=== PATIENT | male | born 1980 | race Hispanic/Latino ===

== ENCOUNTER 2017-02-10 08:35 | Emergency (ER) | payer OTHER ==
[~2017-02-10] VITALS: Ht 170.2 cm; Wt 79.5 kg
[2017-02-10] MEDS ORDERED: VENTAER IN (08:49)
[2017-02-10] MEDS ORDERED: NORT10SO PO (08:49)
[2017-02-10] MEDS ORDERED: CYCL10TA PO (08:49)
[2017-02-10] MEDS ORDERED: SING10TA32 PO (08:49)
--- NOTE | 2017-02-10 09:26 | ECGEPIP ---
Stationary ECG Study 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
[2017-02-10 09:34] VITALS: BP 127/80
== END 2017-02-10 09:48 | disposition home or self-care (01) ==
LOC: M ED 08:35
DX: R00.0 Tachycardia, unspecified (principal); J45.909 Unspecified asthma, uncomplicated; Z79.899 Other long term (current) drug therapy

== ENCOUNTER 2018-05-03 09:04 | Emergency (ER) | payer OTHER ==
[~2018-05-03] VITALS: Ht 170.2 cm; Wt 81.8 kg
[~2018-05-03 09:04] MED LIST: CYCL10TA PO; NORT10SO PO; SING10TA32 PO; VENTAER IN
[2018-05-03] MEDS ORDERED: OXAZEPAM 15 MG CAP PO ONE (10:00)
[2018-05-03 11:03] LABS: HEMATOCRIT 39.7 % (42.0-52.0); HEMOGLOBIN 14.1 g/dl (13.5-17.5); MEAN CORPUSCULAR HEMOGLOBIN 33.3 pg (27.0-33.0); MEAN CORPUSCULAR HGB CONC 35.5 g/dl (32.0-36.5); MEAN CORPUSCULAR VOLUME 93.6 fl (80.0-96.0); PLATELET COUNT, AUTOMATED 261 10^3/uL (150-450); RED BLOOD COUNT 4.24 10^6/uL (4.30-6.10); WHITE BLOOD COUNT 8.3 10^3/uL (4.0-10.0)
[2018-05-03 11:17] LABS: AMPHETAMINES LEVEL URINE NEGATIVE (NEGATIVE); BARBITURATES URINE NEGATIVE (NEGATIVE); BENZODIAZEPINES URINE NEGATIVE (NEGATIVE); CANNABINOIDS URINE NEGATIVE (NEGATIVE); COCAINE METABOLITE URINE NEGATIVE (NEGATIVE); METHADONE URINE NEGATIVE (NEGATIVE); OPIATES URINE NEGATIVE (NEGATIVE); PHENCYCLIDINE URINE NEGATIVE (NEGATIVE)
[2018-05-03 11:44] LABS: ACETAMINOPHEN LEVEL < 2.0 UG/ML (10.0-30.0); ALBUMIN 4.1 GM/DL (3.2-5.2); ALT/SGPT 290 U/L (12-78); BILIRUBIN,DIRECT 0.2 MG/DL (0.0-0.2); BILIRUBIN,TOTAL 0.5 MG/DL (0.2-1.0); BLOOD UREA NITROGEN 7 MG/DL (7-18); CARBON DIOXIDE LEVEL 28 MEQ/L (21-32); CHLORIDE LEVEL 98 MEQ/L (98-107); CREATININE FOR GFR 0.82 MG/DL (0.70-1.30); ETHYL ALCOHOL (ETHANOL) 0.066 % (0.000-0.010); GLOMERULAR FILTRATION RATE > 60.0 (>60); GLUCOSE, FASTING 106 MG/DL (70-100); POTASSIUM SERUM 3.3 MEQ/L (3.5-5.1); SALICYLATE LEVEL < 1.7 MG/DL (5.0-30.0); SODIUM LEVEL 136 MEQ/L (136-145); THYROID STIMULATING HORMONE 0.302 uIU/ML (0.358-3.740); TOTAL PROTEIN 7.4 GM/DL (6.4-8.2)
[2018-05-03] MEDS ORDERED: OXAZ30CA2 PO (12:35)
[2018-05-03 12:47] VITALS: BP 151/91
== END 2018-05-03 12:49 | disposition home or self-care (01) ==
LOC: M ED 09:04
DX: F10.10 Alcohol abuse, uncomplicated (principal); G25.1 Drug-induced tremor; Z79.899 Other long term (current) drug therapy
CPT/HCPCS: 36415; 80048; 80076; 80307; 84443; 85027; 99283; G0480

== ENCOUNTER → 2018-07-20 | Outpatient (CLI) | payer OTHER ==
[~2018-07-20] MED LIST changes: +OXAZ30CA2 PO
--- NOTE | 2018-07-20 12:38 | PFTRPT ---
Site: [facility], [address] [place] [address], [id number] ID: [id number] Name: ARIE ROLAND Visit Date: 07/20/2018 Second ID: [id number] Referring Doctor: Manuel Anguiano Reviewing Doctor: Romero Arteaga MD Hiv Prevention Specialist: Brittni CHOW RRT Age: 38 : 1980 Sex: Male Race: Height: 67.00 Inches Weight: 172.00 Lbs BSA: 1.90 Order IDs: [id number] Requested Test(s): <RESP-PFT.DLCO> Diagnosis: ASTHMA test meet the ATS standards for acceptability and repeatability. Review Status: Not Reviewed Pre-Bronch Post-Bronch Pred Actual %Pred Actual %Chng SPIROMETRY FVC (L) 4.79 4.86 101 FEV1 (L) 3.88 3.89 100 FEV1/FVC (%) 82 80 97 FEF 25% (L/sec) 7.67 8.66 112 FEF 50% (L/sec) 5.29 4.72 89 FEF 75% (L/sec) 1.86 1.40 75 FEF 25-75% (L/sec) 4.02 3.65 90 FEF Max (L/sec) 9.61 10.06 104 FIVC (L) 4.63 FIF 50% (L/sec) 5.28 5.35 101 FIF Max (L/sec) 5.59 MVV (L/min) 157 158 100 Expiratory Time (sec) 7.68 Back Extrap Vol (L) 0.10 Time To FEFmax (sec) 0.068 LUNG VOLUMES SVC (L) 4.69 4.81 102 IC (L) 3.23 3.50 108 ERV (L) 1.46 1.31 89 TGV (L) 3.09 2.75 89 RV (Pleth) (L) 1.63 1.44 88 TLC (Pleth) (L) 6.32 6.25 98 RV/TLC (Pleth) (%) 26 23 88 DIFFUSION DLCOunc (ml/min/mmHg) 32.15 26.80 83 DL/VA (ml/min/mmHg/L) 5.09 4.20 82 VA (L) 6.32 6.37 100 BHT (sec) 10.29 IVC (L) 4.71 TLC (SB) (L) 6.52 AIRWAYS RESISTANCE Raw (cmH2O/L/s) 1.45 1.11 76 Gaw (L/s/cmH2O) 1.03 0.92 89 sRaw (cmH2O*s) 4.76 3.65 76 sGaw (1/cmH2O*s) 0.20 0.28 140
== END ==
LOC: M CARPUL 09:50
PROVIDERS: ATTEND Physician Assistant
DX: J45.20 Mild intermittent asthma, uncomplicated (principal)

== ENCOUNTER → 2018-11-15 | Outpatient (CLI) | payer OTHER ==
--- NOTE | 2018-11-15 10:48 | REP ---
Clinical: Asthma . Comparison: None . Technique: PA and lateral. Findings: The mediastinum and cardiac silhouette are normal. The lung arguelles are clear and without acute consolidation, effusion, or pneumothorax. The skeletal structures are intact and normal. Impression: 1. No acute cardiopulmonary process. Electronically Signed by Anupam Linton MD 11/15/2018 10:40 A
== END ==
LOC: M SMT 10:16
PROVIDERS: ATTEND Physician Assistant
DX: J45.20 Mild intermittent asthma, uncomplicated (principal)

== ENCOUNTER 2019-06-25 08:01 | Emergency (ER) | payer OTHER ==
[~2019-06-25] VITALS: Ht 170.2 cm; Wt 90.9 kg
[~2019-06-25 08:01] MED LIST changes: +CYCL-707 PO; -CYCL10TA PO
[2019-06-25 09:01] LABS: HEMATOCRIT 43.1 % (42.0-52.0); HEMOGLOBIN 15.6 g/dl (13.5-17.5); MEAN CORPUSCULAR HEMOGLOBIN 33.5 pg (27.0-33.0); MEAN CORPUSCULAR HGB CONC 36.2 g/dl (32.0-36.5); MEAN CORPUSCULAR VOLUME 92.7 fl (80.0-96.0); PLATELET COUNT, AUTOMATED 267 10^3/uL (150-450); RED BLOOD COUNT 4.65 10^6/uL (4.30-6.10); WHITE BLOOD COUNT 6.3 10^3/uL (4.0-10.0)
[2019-06-25] MEDS ORDERED: LORazepam 2 MG/ML VIAL (J2060) IV STA (09:04)
[2019-06-25] MEDS ORDERED: MULTIVITAMIN -ADULT INJECTION 10 ML, THIAMINE INJection 100 MG, FOLIC ACID 1 MG in NS 1... IV ONE (09:15)
[2019-06-25 09:23] LABS: MAGNESIUM LEVEL 2.1 MG/DL (1.8-2.4); PHOSPHORUS LEVEL 2.8 MG/DL (2.5-4.9)
[2019-06-25] MEDS ORDERED: ONDANSETRON 4MG/2ML VIAL (J2405) As Ordered ONE (09:28)
[2019-06-25] MEDS ORDERED: ONDANSETRON 4MG/2ML VIAL (J2405) IV ONE (09:30)
[2019-06-25 09:31] LABS: ACETAMINOPHEN LEVEL < 2.0 UG/ML (10.0-30.0); ALBUMIN 4.3 GM/DL (3.2-5.2); ALT/SGPT 201 U/L (12-78); BILIRUBIN,DIRECT 0.1 MG/DL (0.0-0.2); BILIRUBIN,TOTAL 0.6 MG/DL (0.2-1.0); BLOOD UREA NITROGEN 10 MG/DL (7-18); CALCIUM LEVEL 8.5 MG/DL (8.5-10.1); CARBON DIOXIDE LEVEL 27 MEQ/L (21-32); CHLORIDE LEVEL 103 MEQ/L (98-107); CREATININE FOR GFR 0.94 MG/DL (0.70-1.30); ETHYL ALCOHOL (ETHANOL) 0.122 % (0.000-0.010); GLOMERULAR FILTRATION RATE > 60.0 (>60); GLUCOSE, FASTING 129 MG/DL (70-100); POTASSIUM SERUM 3.3 MEQ/L (3.5-5.1); SALICYLATE LEVEL < 1.7 MG/DL (5.0-30.0); SODIUM LEVEL 142 MEQ/L (136-145); THYROID STIMULATING HORMONE 0.549 uIU/ML (0.358-3.740); TOTAL PROTEIN 7.7 GM/DL (6.4-8.2)
[2019-06-25 09:34] LABS: AMPHETAMINES LEVEL URINE NEGATIVE (NEGATIVE); BARBITURATES URINE NEGATIVE (NEGATIVE); BENZODIAZEPINES URINE NEGATIVE (NEGATIVE); CANNABINOIDS URINE NEGATIVE (NEGATIVE); COCAINE METABOLITE URINE NEGATIVE (NEGATIVE); METHADONE URINE NEGATIVE (NEGATIVE); OPIATES URINE NEGATIVE (NEGATIVE); PHENCYCLIDINE URINE NEGATIVE (NEGATIVE)
[2019-06-25 10:00] LABS: VENOUS BASE EXCESS 2.4 (-2.0-2.0); VENOUS HCO3 27.7 MEQ/L (23.0-27.0); VENOUS O2 SATURATION 94.2 % (60.0-80.0); VENOUS PARTIAL PRESSURE O2 71.8 mmHg (30.0-50.0); VENOUS PH 7.407 UNITS (7.330-7.430); VENOUS STANDARD HCO3 26.5 MEQ/L; VENOUS TOTAL CO2 29.1 MEQ/L (24.0-28.0)
[2019-06-25 10:57] LABS: ACETONE/KETONE 1.68 MG/DL (<2.81)
[2019-06-25 11:15] VITALS: BP 124/70
[2019-06-25] MEDS ORDERED: OXAZEPAM 15 MG CAP PO ONE (11:15)
--- NOTE | 2019-06-25 11:42 | ECGEPIP ---
[facility] - ED Test Date: 2019-06-25 Pat Name: ARIE ROLAND Department: Room: - Gender: Male Inspector Electromechanical: nai : 1980 Requested By: Elizabeth Ch Order Number: [id number] Reading MD: Elizabeth Ch Measurements Intervals [place] Rate: 83 P: 28 MI: 144 QRS: 29 QRSD: 111 T: 0 QT: 388 QTc: 456 Interpretive Statements SINUS RHYTHM MODERATE INTRAVENTRICULAR CONDUCTION DELAY NONSPECIFIC ST T [facility]ES CW 02/10/[address] T [facility] Electronically Signed on 06-25-2019 11:41:30 EDT by Elizabeth Ch
== END 2019-06-25 11:40 | disposition home or self-care (01) ==
LOC: M ED 08:01
DX: F10.239 Alcohol dependence with withdrawal, unspecified (principal); M25.512 Pain in left shoulder; I10 Essential (primary) hypertension
CPT/HCPCS: 80048; 80076; 80307; 81001; 82010; 82803; 83735; 83930; 84100; 84443; 85027; 93005; 93041; 94760; 96365; 96366; 96375; 99285; G0480; J2060; J2405; J3411

== ENCOUNTER → 2021-01-29 | Outpatient (REF) ==
--- NOTE | 2021-01-29 13:39 | REP ---
INDICATION: SOB AND PAIN COMPARISON: 11/15/2018 TECHNIQUE: PA and lateral. FINDINGS: The mediastinum and cardiac silhouette are normal. The lung arguelles are clear and without acute consolidation, effusion, or pneumothorax. The skeletal structures are intact and normal. IMPRESSION: No acute cardiopulmonary process. <Electronically signed by Anupam Linton > 01/29/21 [id number]
--- NOTE | 2021-01-29 13:42 | REP ---
INDICATION: SOB AND PAIN COMPARISON: None. TECHNIQUE: AP, lateral, bilateral oblique views right foot. FINDINGS: The osseous structures and joint spaces are intact and essentially age-appropriate. There is no evidence for acute fracture or dislocation. Surrounding soft tissues are unremarkable. Minimal periarticular sclerosis and joint space narrowing involving the 1st metatarsophalangeal joint and interphalangeal joints suggested. IMPRESSION: Age-appropriate right foot radiographs. <Electronically signed by Anupam Linton > 01/29/21 [id number]
== END ==
LOC: M PLAIMG 13:11
PROVIDERS: ATTEND Internal Medicine
DX: R06.02 Shortness of breath (principal); M79.671 Pain in right foot

== ENCOUNTER 2022-08-04 16:25 | Inpatient (IN) | payer OTHER ==
[~2022-08-04] VITALS: Ht 170.2 cm; Wt 70.5 kg
[2022-08-04] MEDS: MULTIVITAMINS/MINERALS THERAP 1 TAB PO SCH (09:00)
[~2022-08-04 16:25] MED LIST changes: +MONT-5 PO; -SING10TA32 PO
[2022-08-04] MEDS: LORazepam 2 MG TAB PO PRN ×2 (16:52→18:10)
[2022-08-04] MEDS ORDERED: LORazepam 2 MG/ML 1ML VIAL IV STA (17:02)
[2022-08-04] MEDS ORDERED: THIAMINE 200MG 2ML VIAL IM ONE (17:05)
[2022-08-04] MEDS ORDERED: NS 1,000 ML IV SCH (17:15)
[2022-08-04 17:21] LABS: BASO # 0.1 10^3/uL (0.0-0.2); EOS % 0.1 % (0.0-3.0); HEMATOCRIT 39.7 % (42.0-52.0); HEMOGLOBIN 13.6 g/dl (13.5-17.5); LYMPH # 0.8 10^3/uL (1.5-5.0); LYMPH % 11.4 % (24.0-44.0); MEAN CORPUSCULAR HEMOGLOBIN 35.1 pg (27.0-33.0); MEAN CORPUSCULAR HGB CONC 34.3 g/dl (32.0-36.5); MEAN CORPUSCULAR VOLUME 102.6 fl (80.0-96.0); MONO # 0.4 10^3/uL (0.0-0.8); MONO % 5.8 % (2.0-8.0); NEUTROPHILS # 5.8 10^3/uL (1.5-8.5); PLATELET COUNT, AUTOMATED 229 10^3/uL (150-450); RED BLOOD COUNT 3.87 10^6/uL (4.30-6.10); WHITE BLOOD COUNT 7.1 10^3/uL (4.0-10.0)
[2022-08-04 17:36] LABS: LIPASE 64 U/L (12-53); OSMOLALITY SERUM 304 MOSM/KG (275-295)
[2022-08-04 17:37] LABS: ETHYL ALCOHOL (ETHANOL) 0.013 % (0.000-0.010)
[2022-08-04 17:39] LABS: ALBUMIN 4.5 G/DL (3.2-5.2); ALKALINE PHOSPHATASE 121 U/L (46-116); ALT/SGPT 192 U/L (7.0-40); AST/SGOT 262 U/L (<34); BILIRUBIN,DIRECT 1.4 MG/DL (<0.4); BILIRUBIN,TOTAL 2.3 MG/DL (0.3-1.2); BLOOD UREA NITROGEN 10 MG/DL (9-23); CALCIUM LEVEL 10.2 MG/DL (8.5-10.1); CARBON DIOXIDE LEVEL 20 MMOL/L (20-31); CHLORIDE LEVEL 97 MMOL/L (98-107); CREATININE FOR GFR 0.68 MG/DL (0.70-1.30); GLOMERULAR FILTRATION RATE > 60.0 (>60); GLUCOSE, FASTING 200 MG/DL (60-100); MAGNESIUM LEVEL 1.5 MG/DL (1.8-2.4); POTASSIUM SERUM 3.5 MMOL/L (3.5-5.1); SODIUM LEVEL 136 MMOL/L (136-145); TOTAL PROTEIN 8.4 G/DL (5.7-8.2)
[2022-08-04 17:42] LABS: THYROID STIMULATING HORMONE 1.689 uIU/ML (0.55-4.78)
[2022-08-04] MEDS ORDERED: MAG SULF 1GM/100ML (MAG RUN) 1 GM in IV 1 EA IV ONE (18:00)
[2022-08-04] MEDS ORDERED: CETI5TAB2 PO (18:43)
[2022-08-04] MEDS ORDERED: CETI-24 PO (18:44)
[2022-08-04] MEDS ORDERED: HOME MED LIST COMPLETE! XX SCH (18:45)
[2022-08-04] MEDS ORDERED: diazePAM 10MG/2ML SYRINGE IV ONE (18:45)
[2022-08-04] MEDS ORDERED: LORazepam 2 MG TAB XX PRN (18:45)
[2022-08-04] MEDS: OXAZEPAM 15MG CAP PO SCH (19:14)
[2022-08-04] MEDS: THIAMINE 100 MG TAB PO SCH (19:56)
[2022-08-04] MEDS: ENOXAPARIN 40MG/0.4ML SYRINGE (J1650 PER 10MG) SC SCH (19:56)
[2022-08-04] MEDS: FOLIC ACID 1MG TAB PO SCH (19:56)
[2022-08-04] MEDS: LR 1,000 ML IV SCH (19:57)
[2022-08-04] MEDS: LORazepam 2 MG/ML 1ML VIAL IV PRN ×2 (19:59→21:55)
[2022-08-04 20:10] LABS: RSV AMPLIFICATION NEGATIVE (NEGATIVE)
[2022-08-04] MEDS ORDERED: THIAMINE 100 MG TAB PO SCH (21:00)
[2022-08-04 21:22] VITALS: BP 133/84
[2022-08-04 23:50] VITALS: BP 115/73
[2022-08-05] VITALS (21 sets, daily range): BP systolic 133–148; BP diastolic 75–89; O2SAT 92–98
[2022-08-05] MEDS: OXAZEPAM 15MG CAP PO SCH ×4 (00:17→17:30)
[2022-08-05] MEDS: LR 1,000 ML IV SCH (02:43)
[2022-08-05 05:55] LABS: HEMATOCRIT 35.8 % (42.0-52.0); HEMOGLOBIN 12.1 g/dl (13.5-17.5); MEAN CORPUSCULAR HEMOGLOBIN 34.8 pg (27.0-33.0); MEAN CORPUSCULAR HGB CONC 33.8 g/dl (32.0-36.5); MEAN CORPUSCULAR VOLUME 102.9 fl (80.0-96.0); PLATELET COUNT, AUTOMATED 168 10^3/uL (150-450); RED BLOOD COUNT 3.48 10^6/uL (4.30-6.10); WHITE BLOOD COUNT 5.4 10^3/uL (4.0-10.0)
[2022-08-05 06:24] LABS: ALBUMIN 3.8 G/DL (3.2-5.2); ALKALINE PHOSPHATASE 96 U/L (46-116); ALT/SGPT 154 U/L (7.0-40); AST/SGOT 200 U/L (<34); BILIRUBIN,TOTAL 2.3 MG/DL (0.3-1.2); BLOOD UREA NITROGEN 11 MG/DL (9-23); CALCIUM LEVEL 9.3 MG/DL (8.5-10.1); CARBON DIOXIDE LEVEL 33 MMOL/L (20-31); CHLORIDE LEVEL 100 MMOL/L (98-107); GLOMERULAR FILTRATION RATE > 60.0 (>60); GLUCOSE, FASTING 94 MG/DL (60-100); MAGNESIUM LEVEL 1.9 MG/DL (1.8-2.4); POTASSIUM SERUM 3.3 MMOL/L (3.5-5.1); SODIUM LEVEL 135 MMOL/L (136-145); TOTAL PROTEIN 7.1 G/DL (5.7-8.2)
[2022-08-05] MEDS: FOLIC ACID 1MG TAB PO SCH (08:38)
[2022-08-05] MEDS: THIAMINE 100 MG TAB PO SCH ×2 (08:38→21:42)
[2022-08-05] MEDS: MULTIVITAMINS/MINERALS THERAP 1 TAB PO SCH (08:38)
[2022-08-05] MEDS ORDERED: POTASSIUM CHLORIDE 10MEQ SR TABLET PO ONE (08:45)
[2022-08-05] MEDS: LORazepam 2 MG/ML 1ML VIAL IV PRN ×3 (08:48→21:42)
[2022-08-05] MEDS: MAG SULF 1GM/100ML (MAG RUN) 1 GM in IV 1 EA IV SCH ×2 (08:52→10:20)
[2022-08-05] MEDS ORDERED: MULTIVITAMINS/MINERALS THERAP 1 TAB PO SCH (09:00)
[2022-08-05] MEDS ORDERED: FOLIC ACID 1MG TAB PO SCH (09:00)
[2022-08-05 09:06] LABS: PHOSPHORUS LEVEL 2.2 MG/DL (2.5-4.9)
[2022-08-05 09:09] LABS: VITAMIN B12 LEVEL 716 PG/ML (211-911)
[2022-08-05] MEDS ORDERED: LABETALOL 100MG/20ML VIAL IV PRN (09:50)
[2022-08-05 10:27] LABS: INR 1.11; PARTIAL THROMBOPLASTIN TIME 29.4 SECONDS (24.8-34.2); PROTHROMBIN TIME 14.5 SECONDS (12.5-14.5)
[2022-08-05 10:59] LABS: HEPATITIS B SURFACE ANTIGEN NEGATIVE (NEGATIVE)
[2022-08-05 11:19] LABS: HEPATITIS B CORE ANTIBODY IGM NEGATIVE (NEGATIVE)
[2022-08-05] MEDS ORDERED: ONDANSETRON 4MG 2ML VIAL IV PRN (17:10)
[2022-08-05] MEDS: ENOXAPARIN 40MG/0.4ML SYRINGE (J1650 PER 10MG) SC SCH (21:42)
[2022-08-06] VITALS: BP 126/86; O2SAT 97
[2022-08-06] MEDS: OXAZEPAM 15MG CAP PO SCH ×2 (00:09→05:10)
[2022-08-06 01:00] VITALS: O2SAT 96
[2022-08-06 02:00] VITALS: O2SAT 93
[2022-08-06 03:00] VITALS: O2SAT 92
[2022-08-06 04:00] VITALS: BP 134/83; O2SAT 93
[2022-08-06 06:18] LABS: BASO # 0.1 10^3/uL (0.0-0.2); BASO % 0.8 % (0.0-1.0); EOS # 0.2 10^3/uL (0.0-0.5); EOS % 2.6 % (0.0-3.0); HEMATOCRIT 38.4 % (42.0-52.0); LYMPH # 2.1 10^3/uL (1.5-5.0); LYMPH % 33.7 % (24.0-44.0); MEAN CORPUSCULAR HEMOGLOBIN 34.9 pg (27.0-33.0); MEAN CORPUSCULAR HGB CONC 33.9 g/dl (32.0-36.5); MEAN CORPUSCULAR VOLUME 102.9 fl (80.0-96.0); MONO # 0.5 10^3/uL (0.0-0.8); MONO % 8.2 % (2.0-8.0); NEUTROPHILS # 3.4 10^3/uL (1.5-8.5); NEUTROPHILS % 54.4 % (36.0-66.0); PLATELET COUNT, AUTOMATED 204 10^3/uL (150-450); RED BLOOD COUNT 3.73 10^6/uL (4.30-6.10); WHITE BLOOD COUNT 6.2 10^3/uL (4.0-10.0)
[2022-08-06 06:34] LABS: ALBUMIN 3.9 G/DL (3.2-5.2); ALKALINE PHOSPHATASE 102 U/L (46-116); ALT/SGPT 202 U/L (7.0-40); AST/SGOT 284 U/L (<34); BILIRUBIN,TOTAL 2.7 MG/DL (0.3-1.2); BLOOD UREA NITROGEN 9 MG/DL (9-23); CALCIUM LEVEL 8.7 MG/DL (8.5-10.1); CARBON DIOXIDE LEVEL 27 MMOL/L (20-31); CHLORIDE LEVEL 101 MMOL/L (98-107); CREATININE FOR GFR 0.59 MG/DL (0.70-1.30); GLOMERULAR FILTRATION RATE > 60.0 (>60); GLUCOSE, FASTING 91 MG/DL (60-100); POTASSIUM SERUM 3.9 MMOL/L (3.5-5.1); SODIUM LEVEL 137 MMOL/L (136-145); TOTAL PROTEIN 7.3 G/DL (5.7-8.2)
[2022-08-06 08:19] VITALS: BP 123/84
[2022-08-06] MEDS: MULTIVITAMINS/MINERALS THERAP 1 TAB PO SCH (08:25)
[2022-08-06] MEDS: FOLIC ACID 1MG TAB PO SCH (08:26)
[2022-08-06] MEDS: THIAMINE 100 MG TAB PO SCH (08:26)
[2022-08-06] MEDS ORDERED: INFLUENZA QUADRIVALENT PF VACCINE 0.5ML SYRINGE IM.IMMUN ONE (09:00)
[2022-08-06] MEDS ORDERED: POTASSIUM PHOSPHATE INJ 20 MMOL in D5W 250 ML IV ONE (13:00)
== END 2022-08-06 11:10 | disposition left against medical advice (07) | DRG 894 ==
LOC: M ED 16:25 → M ED INP 18:41 → M PCU 21:11
PROVIDERS: ADMIT Family Medicine; ATTEND Family Medicine
DX: F10.239 Alcohol dependence with withdrawal, unspecified (principal); F90.9 Attention-deficit hyperactivity disorder, unspecified type; E83.52 Hypercalcemia; R74.01 Elevation of levels of liver transaminase levels; R94.5 Abnormal results of liver function studies; E83.42 Hypomagnesemia; E87.6 Hypokalemia; F12.90 Cannabis use, unspecified, uncomplicated; K76.0 Fatty (change of) liver, not elsewhere classified; R56.9 Unspecified convulsions; D53.9 Nutritional anemia, unspecified; E83.39 Other disorders of phosphorus metabolism

== ENCOUNTER → 2023-10-06 | Outpatient (REF) ==
[~2023-10-06] MED LIST changes: +CETI-24 PO; +CETI5TAB2 PO
== END ==
LOC: M PLAIMG 09:56
PROVIDERS: ATTEND Internal Medicine
DX: R52 Pain, unspecified (principal)

== ENCOUNTER → 2024-03-31 | Outpatient (CLI) | payer OTHER | LOC: M PLAIMG 08:16 | PROVIDERS: ATTEND Registered Nurse | DX: R25.1 Tremor, unspecified (principal); R90.82 White matter disease, unspecified ==